=== PATIENT | male | born 1945 | race Caucasian/White ===

== ENCOUNTER 2016-11-30 11:00 | Inpatient (IN) | payer OTHER ==
[~2016-11-30] VITALS: Ht 160 cm; Wt 84.3 kg
[2017-01-03 15:15] VITALS: BMI 33.2
[2017-01-04] VITALS (33 sets, daily range): BP systolic 109–147; BP diastolic 55–82; PULSE 66–92; RESP 14–20; Ht 160 cm; Wt 84.3 kg
[2017-01-04] MEDS ORDERED: CEFAZOLIN 1 GM INJ ONE (07:00)
[2017-01-04] MEDS ORDERED: ONDANSETRON 4 MG INJ ONE (07:00)
[2017-01-04] MEDS ORDERED: POLYMYXIN B 500000 UNIT INJ ONE (07:36)
--- NOTE | 2017-01-04 07:52 | HPN ---
Date/Time of Note Date/Time of Note DATE: 01/04/17 TIME: 07:52 Interval H&P Admission Note Pt. seen H&P reviewed: No system changes NINO SOLANO MD Jan 04, 2017 07:52
[2017-01-04] MEDS ORDERED: MIDAZOLAM 1 MG/ML 2 ML INJ ONE (08:00)
[2017-01-04] MEDS ORDERED: TRANEXAMIC ACID 840 MG in SOD CHLORIDE 0.9% 100 ML IVPB ONE ×4 (08:00)
[2017-01-04] MEDS ORDERED: FENTAnyl 50 MCG/ML VIAL ONE ×2 (08:01→10:31)
[2017-01-04] MEDS ORDERED: PROPOFOL 20 ML ONE (08:01)
[2017-01-04] MEDS ORDERED: LACT10SO5 PO (08:06)
[2017-01-04] MEDS ORDERED: MONT10TA24 PO (08:06)
[2017-01-04] MEDS ORDERED: IRON1TAB78 PO (08:06)
[2017-01-04] MEDS ORDERED: AMLO-145 PO (08:06)
[2017-01-04] MEDS ORDERED: MEMA10TA16 PO (08:06)
[2017-01-04] MEDS ORDERED: DORZ10DR22 BOTH EYES (08:06)
[2017-01-04] MEDS ORDERED: RANI150T5 PO (08:06)
[2017-01-04] MEDS ORDERED: FLUO10CA17 PO (08:06)
[2017-01-04] MEDS ORDERED: LOPE1LIQ33 PO (08:06)
[2017-01-04] MEDS ORDERED: TRAM50TA2 PO (08:06)
[2017-01-04] MEDS ORDERED: ASPI-535 PO (08:06)
[2017-01-04] MEDS ORDERED: DONE5TAB7 PO (08:06)
[2017-01-04] MEDS ORDERED: [UNRECOGNIZED DRUG - CODE] PO (08:06)
[2017-01-04] MEDS ORDERED: ACET500T98 PO (08:06)
[2017-01-04] MEDS ORDERED: HYDR-902 PO (08:06)
[2017-01-04] MEDS ORDERED: ALBU18HF INHALATION (08:06)
[2017-01-04] MEDS ORDERED: DICL100G37 TOP (08:06)
[2017-01-04] MEDS ORDERED: BENA40TA41 PO (08:06)
[2017-01-04] MEDS ORDERED: NORT25CA PO (08:06)
[2017-01-04] MEDS ORDERED: PANT40TA4 PO (08:06)
[2017-01-04] MEDS ORDERED: FLUT16SP17 NASAL (08:06)
[2017-01-04] MEDS ORDERED: LATA2.5D9 BOTH EYES (08:06)
[2017-01-04] MEDS ORDERED: PHENYLephrine (100 MCG/ML) 5ML SYG ONE (08:17)
[2017-01-04] MEDS ORDERED: LABETALOL HCL 20MG INJ ONE (08:51)
[2017-01-04] MEDS ORDERED: POLYMYXIN/BACITRACIN 1L IRRIG ONE (09:16)
[2017-01-04] MEDS ORDERED: BACITRACIN 50000 UNITS INJ ONE (09:18)
[2017-01-04] MEDS ORDERED: LIDOCAINE 2% (SDV) 5 ML INJ ONE (09:57)
[2017-01-04] MEDS ORDERED: DEXAMETHASONE 4 MG/ML 1 ML INJ ONE (09:57)
[2017-01-04] MEDS ORDERED: ROCURONIUM 50 MG INJ ONE (09:57)
[2017-01-04] MEDS ORDERED: ROPIVACAINE 0.5 % 30 ML VIAL ONE (09:57)
[2017-01-04] MEDS ORDERED: hydrALAzine 20 MG INJ IV PRN (11:00)
[2017-01-04] MEDS ORDERED: KETOROLAC 30 MG INJ IV PRN (11:00)
[2017-01-04] MEDS ORDERED: MEPERIDINE 25 MG INJ IV PRN (11:00)
[2017-01-04] MEDS ORDERED: ONDANSETRON 4 MG INJ IV PRN ×2 (11:00)
[2017-01-04] MEDS ORDERED: EPHEDrine SULFATE 50 MG/5 ML SYG IV PRN (11:00)
[2017-01-04] MEDS ORDERED: HYDROmorphONE (0.2 MG/ML) 10ML SYG IV PRN ×3 (11:00)
[2017-01-04] MEDS ORDERED: LABETALOL HCL 20MG INJ IV PRN (11:00)
[2017-01-04] MEDS ORDERED: FENTAnyl 50 MCG/ML VIAL IV PRN ×3 (11:00)
[2017-01-04] MEDS ORDERED: NALOXONE (0.4 MG/ML) INJ IV PRN ×2 (11:00→11:30)
[2017-01-04] MEDS ORDERED: OXYCODONE/ACETAMINOPHEN (5/325) TAB PO PRN (11:00)
[2017-01-04] MEDS ORDERED: DIPHENHYDRAMINE 50 MG INJ IV PRN (11:00)
[2017-01-04] MEDS ORDERED: INSULIN ASPART [NOVOLOG] 3 ML PEN SC ONE (11:00)
[2017-01-04] MEDS ORDERED: CEFAZOLIN 1 GM/50 ML (PMX) 50 ML IVPB ONE ×2 (11:28→11:45)
[2017-01-04] MEDS ORDERED: DOCUSATE SODIUM 100 MG CAP PO ONE ×2 (11:28→11:30)
[2017-01-04] MEDS ORDERED: SENNA/DOCUSATE NA (8.6MG/50MG) TAB PO PRN (11:30)
[2017-01-04] MEDS ORDERED: MAGNESIUM HYDROXIDE 30ML CUP PO PRN (11:30)
[2017-01-04] MEDS ORDERED: oxyCODONE 5 MG TAB PO PRN (11:30)
[2017-01-04] MEDS: HYDROmorphONE 0.2 MG/ML PCA IV SCH ×2 (11:36→20:13)
[2017-01-04] MEDS: CEFAZOLIN 1 GM/50 ML (PMX) 50 ML IVPB SCH ×2 (11:43→21:26)
[2017-01-04] MEDS: DEXTROSE 5%-LR 1,000 ML IV SCH ×2 (13:13→22:16)
--- NOTE | 2017-01-04 13:41 | RADRPT ---
PROCEDURE: XR Knee. CLINICAL INDICATION: Postoperative evaluation TECHNIQUE: AP and lateral of the left knee were obtained. The images reviewed on a PACS workstati on. COMPARISON: None. FINDINGS: A left knee arthroplasty is seen and is without evidence of hardware loosening of lucency. No acute fracture or dislocation is seen. Skin robert are seen with soft tissue swelling and soft tissue air . A drain is seen in place. IMPRESSION: Status post left knee arthroplasty with acute postoperative changes. RPTAT: HPNM Physician Vladislav Date Time Electronically viewed and signed by Physician Vladislav on 01/04/2017 13:41 /
[2017-01-04] MEDS: DIPHENHYDRAMINE 50 MG INJ IV PRN ×2 (13:56→22:02)
[2017-01-04] MEDS ORDERED: ALBUTEROL 18 GM INHALER INH PRN (15:30)
[2017-01-04] MEDS: PANTOPRAZOLE (EC) 40 MG TAB PO SCH (17:23)
[2017-01-04] MEDS: FLUTICASONE 0.05% 16 GM NAS SPRAY NASAL SCH (20:38)
[2017-01-04] MEDS: MONTELUKAST 10 MG TAB PO SCH (20:38)
[2017-01-04] MEDS: DORZOLAMIDE/TIMOLOL 10 ML OPH BOTH EYES SCH (20:38)
[2017-01-04] MEDS: MEMANTINE 10 MG TAB PO SCH (20:39)
[2017-01-04] MEDS: LATANOPROST 0.005% 2.5 ML OPH BOTH EYES SCH (21:43)
[2017-01-05] MEDS: DIPHENHYDRAMINE 50 MG INJ IV PRN ×2 (04:17→22:11)
[2017-01-05] MEDS: HYDROmorphONE 0.2 MG/ML PCA IV SCH (04:18)
[2017-01-05 05:52] LABS: ABNORMAL IP MESSAGE 1; BASOPHILS % 0.1 % (0.0-2.0); EOSINOPHILS % 0.1 % (0.0-7.0); HEMATOCRIT 31.3 % (42.0-52.0); HEMOGLOBIN 10.9 g/dl (14.0-18.0); LYMPHOCYTES # 1.5 10^3/ul (0.8-2.9); MEAN CORPUSCULAR HEMOGLOBIN 33.3 pg (29.0-33.0); MEAN CORPUSCULAR HGB CONC 34.8 g/dl (32.0-37.0); MEAN CORPUSCULAR VOLUME 95.7 fl (82.0-101.0); MEAN PLATELET VOLUME 9.9 fl (7.4-10.4); MONOCYTE # 1.5 10^3/ul (0.3-0.9); MONOCYTES % 12.1 % (0.0-11.0); NEUTROPHIL # 9.6 10^3/ul (1.6-7.5); NEUTROPHILS % 75.3 % (39.0-77.0); PLATELET COUNT 134 10^3/UL (140-415); POSITIVE DIFF @See below; RED BLOOD COUNT 3.27 10^6/ul (4.70-6.10); RED CELL DISTRIBUTION WIDTH 13.1 % (11.5-14.5); WHITE BLOOD COUNT 12.8 10^3/ul (4.8-10.8)
[2017-01-05] MEDS: PANTOPRAZOLE (EC) 40 MG TAB PO SCH ×2 (06:12→18:43)
[2017-01-05] MEDS: CEFAZOLIN 1 GM/50 ML (PMX) 50 ML IVPB SCH (06:14)
[2017-01-05 06:20] LABS: INR 1.03; PROTIME 13.5 Sec (12.2-14.2); PT RATIO 1.1
[2017-01-05 06:36] LABS: CALCIUM 8.4 mg/dl (8.4-10.2); CREATININE 0.63 mg/dl (0.61-1.24); POTASSIUM 3.9 mmol/L (3.5-5.1)
[2017-01-05 07:55] VITALS: BP 148/69; RESP 17
[2017-01-05] MEDS: FLUTICASONE 0.05% 16 GM NAS SPRAY NASAL SCH ×2 (08:35→22:07)
[2017-01-05] MEDS: DORZOLAMIDE/TIMOLOL 10 ML OPH BOTH EYES SCH ×2 (08:35→22:06)
[2017-01-05] MEDS: DOCUSATE SODIUM 100 MG CAP PO SCH ×2 (08:36→22:06)
[2017-01-05] MEDS: DONEPEZIL 5 MG TAB PO SCH (08:36)
[2017-01-05] MEDS: AMLODIPINE 5 MG TAB PO SCH (08:36)
[2017-01-05] MEDS: MEMANTINE 10 MG TAB PO SCH ×2 (08:36→22:06)
[2017-01-05] MEDS: ASPIRIN (EC) 325 MG TAB PO SCH ×2 (08:37→22:06)
[2017-01-05] MEDS: BENAZEPRIL 40 MG TAB PO SCH (08:37)
[2017-01-05] MEDS: FLUOXETINE 10 MG CAP PO SCH (08:40)
[2017-01-05] MEDS: DEXTROSE 5%-LR 1,000 ML IV SCH (08:41)
--- NOTE | 2017-01-05 12:59 | PN ---
Date/Time of Note Date/Time of Note DATE: 01/05/17 TIME: 12:58 Assessment/Plan Lines/Catheters IV Catheter Type (from Nrsg): Peripheral IV Norman in Place (from Nrsg): No Assessment/Plan Assessment/Plan POD 1 s/p left TKA Stable Pain control CPM, Gait training with PT OOB with PT Aspirin, SCD's for DVT prophylaxis D/c Norman catheter Discharge planning Home tomorrow versus Saturday Subjective 24 Hr Interval Summary Sleeping in bed. Exam/Review of Systems Vital Signs Vitals Vital Signs Date Time Temp Pulse Resp B/P Pulse Ox O2 Delivery O2 Flow Rate FiO2 01/05/17 11:00 Nasal Cannula 2.0 01/05/17 09:00 18 01/05/17 07:55 98.2 78 148/69 100 Intake and Output 01/04/17 01/04/17 01/05/17 15:00 23:00 07:00 Intake Total 1608.4 ml 1700 ml 1000 ml Output Total 373 ml 1460 ml 1400 ml Balance 1235.4 ml 240 ml -400 ml Exam Free Text/Dictation Left LE Dressing c/d/i Calf soft Intact motor and sensory function in foot Toes warm Results Result Diagram: 01/05/17 0457 01/05/17 0457 NINO SOLANO MD Jan 05, 2017 12:59
--- NOTE | 2017-01-05 13:01 | PDOCDIS ---
Discharge Instructions CONDITION Patient Condition: Good HOME CARE INSTRUCTIONS: Diet Instructions: RegularSpecial Diet: REGULAR ACTIVITY: Activity Restrictions: No Restrictions FOLLOW UP/APPOINTMENTS Follow-up Plan Dr. Nino Solano 2 weeks OTHER ORDERS: Other Orders: 1. Aspirin 325 mg po bid x 2 weeks 2. CPM for home use BID 0-90 degrees 3. Knee immobilizer when in bed especially to sleep at night 4. Front wheel walker 5. Elevated toilet seat 6. Home PT SCHOOL/WORK RELEASE May return to School/Work on: Jan 05, 2017 NINO SOLANO MD Jan 05, 2017 13:01
--- NOTE | 2017-01-05 13:24 | PN ---
Date/Time of Note Date/Time of Note DATE: 01/05/17 TIME: 13:20 Assessment/Plan VTE Prophylaxis VTE Prophylaxis Intervention: SCD's Lines/Catheters IV Catheter Type (from Nrsg): Peripheral IV Urinary Cath still in place: No Assessment/Plan Assessment/Plan -s/p left TKA -Per ortho -Pain control - CPM, Gait training with PT - OOB with PT -Aspirin, SCD's for DVT prophylaxis -D/c Norman catheter per surgery. Monitor patient for urinating after Discharge planning Home tomorrow versus Saturday Further recommendations depend on patient's clinical course. Plan of care discussed with Dr. Sharif, staff, patient Subjective 24 Hr Interval Summary Free Text/Dictation Patient is resting in the bed denies any complaints anticipate discharge on Saturday. Making arrangements for CPM machine according to patient's setting. No new events reported by staff Constitutional: improved Respiratory: no complaints Cardiovascular: no complaints Gastrointestinal: no complaints Genitourinary: no complaints Musculoskeletal: bone/joint pain Skin: no complaints Neurologic: no complaints Exam/Review of Systems Vital Signs Vitals Vital Signs Date Time Temp Pulse Resp B/P Pulse Ox O2 Delivery O2 Flow Rate FiO2 01/05/17 11:00 Nasal Cannula 2.0 01/05/17 09:00 18 01/05/17 07:55 98.2 78 148/69 100 Intake and Output 01/04/17 01/04/17 01/05/17 15:00 23:00 07:00 Intake Total 1608.4 ml 1700 ml 1000 ml Output Total 373 ml 1460 ml 1400 ml Balance 1235.4 ml 240 ml -400 ml Exam Constitutional: alert, oriented, well developed Respiratory: clear to auscultation, normal air movement Cardiovascular: nl pulses, regular rate and rhythm Gastrointestinal: non-tender, soft Musculoskeletal: other, swelling (Status post left knee arthroplasty) Extremities: normal pulses Neurological: nl mental status, nl speech Results Result Diagram: 01/05/17 0457 01/05/17 0457 Results 24 hrs Laboratory Tests Test 01/05/17 04:57 White Blood Count 12.8 H Red Blood Count 3.27 L Hemoglobin 10.9 L Hematocrit 31.3 L Mean Corpuscular Volume 95.7 Mean Corpuscular Hemoglobin 33.3 H Mean Corpuscular Hemoglobin Concent 34.8 Red Cell Distribution Width 13.1 Platelet Count 134 L Mean Platelet Volume 9.9 Neutrophils % 75.3 Lymphocytes % 12.0 L Monocytes % 12.1 H Eosinophils % 0.1 Basophils % 0.1 Nucleated Red Blood Cells % 0.0 Neutrophils # 9.6 H Lymphocytes # 1.5 Monocytes # 1.5 H Eosinophils # 0.0 Basophils # 0.0 Nucleated Red Blood Cells # 0.0 Prothrombin Time 13.5 Prothrombin Time Ratio 1.1 INR International Normalized Ratio 1.03 Sodium Level 138 Potassium Level 3.9 Chloride Level 103 Carbon Dioxide Level 22 Anion Gap 17 H Blood Urea Nitrogen 9 Creatinine 0.63 Glucose Level 105 Calcium Level 8.4 Medications Medications Current Medications Naloxone HCl (Narcan) 0.2 mg PRN PRN IV DECREASED REPIRATORY RATE; Start at 11:00 Hydromorphone HCl (Dilaudid KENNEL AIDE) Q4PCA IV Last administered on 01/05/17 04:18 ; Admin Dose 6 MG; Start 01/04/17 at 11:00 Oxycodone/ Acetaminophen (Percocet (5/ 325)) 1 tab Q4H PRN PO PAIN LEVEL 1-5; Start 01/04/17 at 11:00 Oxycodone/ Acetaminophen (Percocet (5/ 325)) 2 tab Q4H PRN PO PAIN LEVEL 6-10; Start 01/04/17 at 11:00 Ketorolac Tromethamine (Toradol) 30 mg Q6H PRN IV PAIN Last administered on 11:55; Admin Dose 30 MG; Start 01/04/17 at 11:00; Stop 01/07/17 at 10:59 Ondansetron HCl (Zofran Inj) 4 mg Q6H PRN IV NAUSEA AND/OR VOMITING; Start at 11:00 Diphenhydramine HCl (Benadryl) 25 mg Q6H PRN IV ITCHING Last administered on 04:17; Admin Dose 25 MG; Start 01/04/17 at 11:00 Miscellaneous Information 1. Discontinue KENNEL AIDE... KENNEL AIDE IV ; Start 01/04/17 at 11:00 Miscellaneous Information 1. Discontinue KENNEL AIDE... KENNEL AIDE IV ; Start 01/04/17 at 11:00 Dextrose/Lactated Ringer's (D5-Lr) 1,000 ml @ 80 mls/hr [id number] IV Last administered on 01/05/17 08:41; Admin Dose 80 MLS/HR; Start 01/04/17 at 11:04 Oxycodone HCl (Roxicodone) 10 mg Q3H PRN PO PAIN LEVEL 4-7; Start 01/04/17 at 11:30 Oxycodone HCl (Roxicodone) 5 mg Q3H PRN PO PAIN LEVEL 1-3; Start 01/04/17 at 11 :30 Aspirin (Ecotrin) 325 mg BID PO Last administered on 01/05/17 08:37; Admin Dose 325 MG; Start 01/05/17 at 09:00 Docusate Sodium (Colace) 200 mg BID PO ; Start 01/05/17 at 09:00; Stop 01/08/17 at 08:59 Senna/Docusate Sodium (Senokot-S) 2 tab BID PRN PO CONSTIPATION; Start at 11:30 Magnesium Hydroxide (Milk Of Mag) 30 ml HS PRN PO CONSTIPATION; Start 01/04/17 at 11:30 Naloxone HCl (Narcan) 0.2 mg Q2M PRN IV DECREASED REPIRATORY RATE; Start at 11:30 Albuterol (Ventolin Hfa) 2 puff Q4H PRN INH SHORTNESS OF BREATH; Start at 15:30 Amlodipine Besylate (Norvasc) 5 mg DAILY PO Last administered on 01/05/17 08: 36; Admin Dose 5 MG; Start 01/05/17 at 09:00 Benazepril HCl (Lotensin) 40 mg DAILY PO Last administered on 01/05/17 08:37; Admin Dose 40 MG; Start 01/05/17 at 09:00 Donepezil HCl (Aricept) 5 mg DAILY PO Last administered on 01/05/17 08:36; Admin Dose 5 MG; Start 01/05/17 at 09:00 Dorzolamide/ Timolol (Cosopt) 1 drop BID BOTH EYES Last administered on 08:35; Admin Dose 1 DROP; Start 01/04/17 at 21:00 Fluoxetine HCl (Prozac) 10 mg DAILY PO Last administered on 01/05/17 08:40; Admin Dose 10 MG; Start 01/05/17 at 09:00 Fluticasone Propionate (Flonase 0.05% Nasal) 1 spray BID NASAL Last administered on 01/05/17 08:35; Admin Dose 1 SPRAY; Start 01/04/17 at 21:00 Latanoprost (Xalatan) 1 drop QHS BOTH EYES Last administered on 01/04/17 21:43 ; Admin Dose 1 DROP; Start 01/04/17 at 21:00 Memantine (Namenda) 10 mg BID PO Last administered on 01/05/17 08:36; Admin Dose 10 MG; Start 01/04/17 at 21:00 Montelukast Sodium (Singulair) 10 mg QHS PO Last administered on 01/04/17 20: 38; Admin Dose 10 MG; Start 01/04/17 at 21:00 Pantoprazole (Protonix Tab) 40 mg BID@,18 PO Last administered on 01/05/17 06:12; Admin Dose 40 MG; Start 01/04/17 at 18:00 JUDD PETERSEN Jan 05, 2017 13:24
[2017-01-05] MEDS: OXYCODONE/ACETAMINOPHEN (5/325) TAB PO PRN (16:18)
[2017-01-05] MEDS: morphine 2 MG INJ IV PRN ×2 (17:40→19:28)
[2017-01-05 20:41] VITALS: BP 123/60; RESP 19
[2017-01-05] MEDS: MONTELUKAST 10 MG TAB PO SCH (22:06)
[2017-01-05] MEDS: LATANOPROST 0.005% 2.5 ML OPH BOTH EYES SCH (22:07)
[2017-01-06] MEDS: DEXTROSE 5%-LR 1,000 ML IV SCH ×2 (00:34→12:11)
[2017-01-06] MEDS: OXYCODONE/ACETAMINOPHEN (5/325) TAB PO PRN ×6 (00:53→23:48)
[2017-01-06] MEDS: morphine 2 MG INJ IV PRN ×6 (02:00→22:07)
[2017-01-06] MEDS: ZOLPIDEM 5 MG TAB PO PRN (02:00)
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
[2017-01-06] MEDS: PANTOPRAZOLE (EC) 40 MG TAB PO SCH ×2 (05:20→17:10)
[2017-01-06 06:54] LABS: ABNORMAL IP MESSAGE 1; BASOPHIL # 0.1 10^3/ul (0.0-0.1); BASOPHILS % 0.4 % (0.0-2.0); EOSINOPHILS # 0.6 10^3/ul (0.0-0.5); EOSINOPHILS % 4.6 % (0.0-7.0); HEMATOCRIT 29.8 % (42.0-52.0); HEMOGLOBIN 10.4 g/dl (14.0-18.0); LYMPHOCYTES # 2.6 10^3/ul (0.8-2.9); LYMPHOCYTES % 21.9 % (15.0-51.0); MEAN CORPUSCULAR HEMOGLOBIN 33.4 pg (29.0-33.0); MEAN CORPUSCULAR HGB CONC 34.9 g/dl (32.0-37.0); MEAN CORPUSCULAR VOLUME 95.8 fl (82.0-101.0); MONOCYTE # 1.9 10^3/ul (0.3-0.9); NEUTROPHIL # 6.7 10^3/ul (1.6-7.5); NEUTROPHILS % 56.3 % (39.0-77.0); PLATELET COUNT 152 10^3/UL (140-415); POSITIVE DIFF @See below; RED BLOOD COUNT 3.11 10^6/ul (4.70-6.10); RED CELL DISTRIBUTION WIDTH 13.4 % (11.5-14.5); WHITE BLOOD COUNT 11.9 10^3/ul (4.8-10.8)
[2017-01-06 07:18] LABS: CALCIUM 8.2 mg/dl (8.4-10.2); CREATININE 0.6 mg/dl (0.61-1.24)
[2017-01-06 07:29] LABS: INR 1.02; PROTIME 13.4 Sec (12.2-14.2)
[2017-01-06 07:50] VITALS: BP 141/64; RESP 18
[2017-01-06] MEDS: FLUTICASONE 0.05% 16 GM NAS SPRAY NASAL SCH ×2 (08:07→20:20)
[2017-01-06] MEDS: DORZOLAMIDE/TIMOLOL 10 ML OPH BOTH EYES SCH ×2 (08:07→20:20)
[2017-01-06] MEDS: DONEPEZIL 5 MG TAB PO SCH (08:07)
[2017-01-06] MEDS: BENAZEPRIL 40 MG TAB PO SCH (08:08)
[2017-01-06] MEDS: DOCUSATE SODIUM 100 MG CAP PO SCH ×2 (08:08→20:21)
[2017-01-06] MEDS: ASPIRIN (EC) 325 MG TAB PO SCH ×2 (08:08→20:21)
[2017-01-06] MEDS: FLUOXETINE 10 MG CAP PO SCH (08:09)
[2017-01-06] MEDS: AMLODIPINE 5 MG TAB PO SCH (08:09)
[2017-01-06] MEDS: MEMANTINE 10 MG TAB PO SCH ×2 (08:09→21:32)
--- NOTE | 2017-01-06 16:24 | PN ---
Date/Time of Note Date/Time of Note DATE: 01/06/17 TIME: 16:22 Assessment/Plan VTE Prophylaxis VTE Prophylaxis Intervention: other Lines/Catheters IV Catheter Type (from Nrsg): Saline Lock Urinary Cath still in place: No Assessment/Plan Assessment/Plan -s/p left TKA- ARU eval pending -Per ortho -Pain control - CPM, Gait training with PT - OOB with PT -Aspirin, SCD's for DVT prophylaxis -D/c Norman catheter per surgery. Monitor patient for urinating after Discharge planning Home tomorrow versus Saturday Further recommendations depend on patient's clinical course. Plan of care discussed with Dr. Sharif, staff, patient Subjective 24 Hr Interval Summary Free Text/Dictation c/o left knee pain, ARU pending. dw staff. Exam/Review of Systems Vital Signs Vitals Vital Signs Date Time Temp Pulse Resp B/P Pulse Ox O2 Delivery O2 Flow Rate FiO2 01/06/17 07:50 99.2 89 18 141/64 94 01/05/17 11:00 Nasal Cannula 2.0 Intake and Output 01/05/17 01/05/17 01/06/17 15:00 23:00 07:00 Intake Total 50 ml 900 ml 2300 ml Output Total 200 ml 1100 ml Balance 50 ml 700 ml 1200 ml Exam Constitutional: alert, oriented, well developed Respiratory: clear to auscultation, normal air movement Cardiovascular: nl pulses, regular rate and rhythm Gastrointestinal: non-tender, soft Musculoskeletal: other Extremities: normal pulses Neurological: nl mental status, nl speech Skin: nl turgor Results Result Diagram: 01/06/17 0530 01/06/17 0530 Results 24 hrs Laboratory Tests Test 01/06/17 05:30 White Blood Count 11.9 H Red Blood Count 3.11 L Hemoglobin 10.4 L Hematocrit 29.8 L Mean Corpuscular Volume 95.8 Mean Corpuscular Hemoglobin 33.4 H Mean Corpuscular Hemoglobin Concent 34.9 Red Cell Distribution Width 13.4 Platelet Count 152 Mean Platelet Volume 10.0 Neutrophils % 56.3 Lymphocytes % 21.9 Monocytes % 16.0 H Eosinophils % 4.6 Basophils % 0.4 Nucleated Red Blood Cells % 0.0 Neutrophils # 6.7 Lymphocytes # 2.6 Monocytes # 1.9 H Eosinophils # 0.6 H Basophils # 0.1 Nucleated Red Blood Cells # 0.0 Prothrombin Time 13.4 Prothrombin Time Ratio 1.0 INR International Normalized Ratio 1.02 Sodium Level 137 Potassium Level 4.0 Chloride Level 101 Carbon Dioxide Level 22 Anion Gap 18 H Blood Urea Nitrogen 11 Creatinine 0.60 L Glucose Level 134 Calcium Level 8.2 L Medications Medications Current Medications Naloxone HCl (Narcan) 0.2 mg PRN PRN IV DECREASED REPIRATORY RATE; Start at 11:00 Oxycodone/ Acetaminophen (Percocet (5/ 325)) 1 tab Q4H PRN PO PAIN LEVEL 1-5; Start 01/04/17 at 11:00 Oxycodone/ Acetaminophen (Percocet (5/ 325)) 2 tab Q4H PRN PO PAIN LEVEL 6-10 Last administered on 01/06/17 15:10; Admin Dose 2 TAB; Start 01/04/17 at 11:00 Ondansetron HCl (Zofran Inj) 4 mg Q6H PRN IV NAUSEA AND/OR VOMITING; Start at 11:00 Diphenhydramine HCl (Benadryl) 25 mg Q6H PRN IV ITCHING Last administered on 22:11; Admin Dose 25 MG; Start 01/04/17 at 11:00 Miscellaneous Information 1. Discontinue BRANCH LENDING MANAGER... BRANCH LENDING MANAGER IV ; Start 01/04/17 at 11:00 Miscellaneous Information 1. Discontinue BRANCH LENDING MANAGER... BRANCH LENDING MANAGER IV ; Start 01/04/17 at 11:00 Dextrose/Lactated Ringer's (D5-Lr) 1,000 ml @ 80 mls/hr [id number] IV Last administered on 01/05/17 08:41; Admin Dose 80 MLS/HR; Start 01/04/17 at 11:04 Oxycodone HCl (Roxicodone) 10 mg Q3H PRN PO PAIN LEVEL 4-7; Start 01/04/17 at 11:30 Oxycodone HCl (Roxicodone) 5 mg Q3H PRN PO PAIN LEVEL 1-3; Start 01/04/17 at 11 :30 Aspirin (Ecotrin) 325 mg BID PO Last administered on 01/06/17 08:08; Admin Dose 325 MG; Start 01/05/17 at 09:00 Docusate Sodium (Colace) 200 mg BID PO Last administered on 01/06/17 08:08; Admin Dose 200 MG; Start 01/05/17 at 09:00; Stop 01/08/17 at 08:59 Senna/Docusate Sodium (Senokot-S) 2 tab BID PRN PO CONSTIPATION; Start at 11:30 Magnesium Hydroxide (Milk Of Mag) 30 ml HS PRN PO CONSTIPATION; Start 01/04/17 at 11:30 Naloxone HCl (Narcan) 0.2 mg Q2M PRN IV DECREASED REPIRATORY RATE; Start at 11:30 Albuterol (Ventolin Hfa) 2 puff Q4H PRN INH SHORTNESS OF BREATH; Start at 15:30 Amlodipine Besylate (Norvasc) 5 mg DAILY PO Last administered on 01/06/17 08: 09; Admin Dose 5 MG; Start 01/05/17 at 09:00 Benazepril HCl (Lotensin) 40 mg DAILY PO Last administered on 01/06/17 08:08; Admin Dose 40 MG; Start 01/05/17 at 09:00 Donepezil HCl (Aricept) 5 mg DAILY PO Last administered on 01/06/17 08:07; Admin Dose 5 MG; Start 01/05/17 at 09:00 Dorzolamide/ Timolol (Cosopt) 1 drop BID BOTH EYES Last administered on 08:07; Admin Dose 1 DROP; Start 01/04/17 at 21:00 Fluoxetine HCl (Prozac) 10 mg DAILY PO Last administered on 01/06/17 08:09; Admin Dose 10 MG; Start 01/05/17 at 09:00 Fluticasone Propionate (Flonase 0.05% Nasal) 1 spray BID NASAL Last administered on 01/06/17 08:07; Admin Dose 1 SPRAY; Start 01/04/17 at 21:00 Latanoprost (Xalatan) 1 drop QHS BOTH EYES Last administered on 01/05/17 22:07 ; Admin Dose 1 DROP; Start 01/04/17 at 21:00 Memantine (Namenda) 10 mg BID PO Last administered on 01/06/17 08:09; Admin Dose 10 MG; Start 01/04/17 at 21:00 Montelukast Sodium (Singulair) 10 mg QHS PO Last administered on 01/05/17 22: 06; Admin Dose 10 MG; Start 01/04/17 at 21:00 Pantoprazole (Protonix Tab) 40 mg BID@06,18 PO Last administered on 01/06/17 05:20; Admin Dose 40 MG; Start 01/04/17 at 18:00 Morphine Sulfate (morphine) 2 mg Q2H PRN IV PAIN Last administered on 11:17; Admin Dose 2 MG; Start 01/05/17 at 15:00 JUDD PETERSEN Jan 06, 2017 16:24
[2017-01-06 19:14] VITALS: BP 145/68; RESP 16
[2017-01-06] MEDS: LATANOPROST 0.005% 2.5 ML OPH BOTH EYES SCH (20:20)
[2017-01-06] MEDS: MONTELUKAST 10 MG TAB PO SCH (20:21)
[2017-01-07] MEDS: DEXTROSE 5%-LR 1,000 ML IV SCH ×2 (01:34→14:04)
[2017-01-07] MEDS: OXYCODONE/ACETAMINOPHEN (5/325) TAB PO PRN ×5 (04:06→22:10)
[2017-01-07 05:25] LABS: ABNORMAL IP MESSAGE 1; BASOPHIL # 0.1 10^3/ul (0.0-0.1); BASOPHILS % 0.6 % (0.0-2.0); EOSINOPHILS # 0.6 10^3/ul (0.0-0.5); EOSINOPHILS % 4.7 % (0.0-7.0); HEMATOCRIT 30.3 % (42.0-52.0); HEMOGLOBIN 10.5 g/dl (14.0-18.0); LYMPHOCYTES # 2.9 10^3/ul (0.8-2.9); LYMPHOCYTES % 23.5 % (15.0-51.0); MEAN CORPUSCULAR HEMOGLOBIN 32.8 pg (29.0-33.0); MEAN CORPUSCULAR HGB CONC 34.7 g/dl (32.0-37.0); MEAN CORPUSCULAR VOLUME 94.7 fl (82.0-101.0); MEAN PLATELET VOLUME 9.5 fl (7.4-10.4); MONOCYTE # 1.9 10^3/ul (0.3-0.9); MONOCYTES % 15.2 % (0.0-11.0); NEUTROPHIL # 6.9 10^3/ul (1.6-7.5); NEUTROPHILS % 55.1 % (39.0-77.0); PLATELET COUNT 160 10^3/UL (140-415); POSITIVE DIFF @See below; RED CELL DISTRIBUTION WIDTH 13.3 % (11.5-14.5); WHITE BLOOD COUNT 12.5 10^3/ul (4.8-10.8)
[2017-01-07] MEDS: PANTOPRAZOLE (EC) 40 MG TAB PO SCH ×2 (05:29→17:32)
[2017-01-07 05:46] LABS: CALCIUM 8.4 mg/dl (8.4-10.2); CREATININE 0.59 mg/dl (0.61-1.24); POTASSIUM 4.3 mmol/L (3.5-5.1)
[2017-01-07] MEDS: DORZOLAMIDE/TIMOLOL 10 ML OPH BOTH EYES SCH ×2 (08:58→22:10)
[2017-01-07] MEDS: DOCUSATE SODIUM 100 MG CAP PO SCH ×2 (08:59→22:10)
[2017-01-07] MEDS: DONEPEZIL 5 MG TAB PO SCH (08:59)
[2017-01-07] MEDS: ASPIRIN (EC) 325 MG TAB PO SCH ×2 (08:59→22:10)
[2017-01-07] MEDS: FLUTICASONE 0.05% 16 GM NAS SPRAY NASAL SCH ×2 (08:59→22:10)
[2017-01-07] MEDS: MEMANTINE 10 MG TAB PO SCH ×2 (09:00→22:10)
[2017-01-07] MEDS: FLUOXETINE 10 MG CAP PO SCH (09:00)
[2017-01-07] MEDS: BENAZEPRIL 40 MG TAB PO SCH (09:00)
[2017-01-07] MEDS: AMLODIPINE 5 MG TAB PO SCH (09:01)
--- NOTE | 2017-01-07 09:12 | PN ---
Date/Time of Note Date/Time of Note DATE: 01/07/17 TIME: 09:10 Assessment/Plan Lines/Catheters IV Catheter Type (from Nrsg): Saline Lock Norman in Place (from Nrsg): No Assessment/Plan Assessment/Plan POD 3 Stable Pain control OOB with PT, CPM Aspirin, SCD's for DVT prophylaxis Patient has not done CPM over the weekend, recommend starting today Discharge planning Consider rehab due to slow progress Subjective 24 Hr Interval Summary Complaining of pain. Exam/Review of Systems Vital Signs Vitals Vital Signs Date Time Temp Pulse Resp B/P Pulse Ox O2 Delivery O2 Flow Rate FiO2 01/06/17 19:14 98.5 90 16 145/68 95 01/05/17 11:00 Nasal Cannula 2.0 Intake and Output 01/06/17 01/06/17 01/07/17 15:00 23:00 07:00 Intake Total 600 ml 720 ml Output Total 1000 ml 750 ml Balance -400 ml -30 ml Exam Free Text/Dictation Left LE Incision c/d/i. No erythema Calf soft and non tender Foot warm and well perfused Intact motor and sensory function Results Result Diagram: 01/07/17 0438 01/07/17 0438 NINO SOLANO MD Jan 07, 2017 09:11
--- NOTE | 2017-01-07 12:25 | PN ---
Date/Time of Note Date/Time of Note DATE: 01/07/17 TIME: 12:18 Assessment/Plan VTE Prophylaxis VTE Prophylaxis Intervention: SCD's Lines/Catheters IV [facility]from [facility] Saline Lock Urinary Cath still in place: No Assessment/Plan Assessment/Plan - Left knee osteoarthritis, status post total knee replacement. Continue aspirin, continue PT, pending acute rehab eval. - Hypertension. Continue benazepril and Norvasc. Further recommendations based on clinical course. Plan of care discussed with Dr. Sharif. Exam/Review of Systems Vital Signs Vitals Vital Signs Date Time Temp Pulse Resp B/P Pulse Ox O2 Delivery O2 Flow Rate FiO2 01/06/17 19:14 98.5 90 16 145/68 95 01/05/17 11:00 Nasal Cannula 2.0 Intake and Output 01/06/17 01/06/17 01/07/17 15:00 23:00 07:00 Intake Total 600 ml 720 ml Output Total 1000 ml 750 ml Balance -400 ml -30 ml Exam Constitutional: alert Respiratory: normal air movement Cardiovascular: nl pulses Gastrointestinal: non-tender, soft Musculoskeletal: other (Status post total knee replacement) Results Result Diagram: 01/07/17 0438 01/07/17 0438 Results 24 hrs Laboratory Tests Test 01/07/17 04:38 White Blood Count 12.5 H Red Blood Count 3.20 L Hemoglobin 10.5 L Hematocrit 30.3 L Mean Corpuscular Volume 94.7 Mean Corpuscular Hemoglobin 32.8 Mean Corpuscular Hemoglobin Concent 34.7 Red Cell Distribution Width 13.3 Platelet Count 160 Mean Platelet Volume 9.5 Neutrophils % 55.1 Lymphocytes % 23.5 Monocytes % 15.2 H Eosinophils % 4.7 Basophils % 0.6 Nucleated Red Blood Cells % 0.0 Neutrophils # 6.9 Lymphocytes # 2.9 Monocytes # 1.9 H Eosinophils # 0.6 H Basophils # 0.1 Nucleated Red Blood Cells # 0.0 Sodium Level 137 Potassium Level 4.3 Chloride Level 102 Carbon Dioxide Level 26 Anion Gap 13 Blood Urea Nitrogen 9 Creatinine 0.59 L Glucose Level 114 Calcium Level 8.4 Medications Medications Current Medications Naloxone HCl (Narcan) 0.2 mg PRN PRN IV DECREASED REPIRATORY RATE; Start at 11:00 Oxycodone/ Acetaminophen (Percocet (5/ 325)) 1 tab Q4H PRN PO PAIN LEVEL 1-5; Start 01/04/17 at 11:00 Oxycodone/ Acetaminophen (Percocet (5/ 325)) 2 tab Q4H PRN PO PAIN LEVEL 6-10 Last administered on 01/07/17 09:01; Admin Dose 2 TAB; Start 01/04/17 at 11:00 Ondansetron HCl (Zofran Inj) 4 mg Q6H PRN IV NAUSEA AND/OR VOMITING; Start at 11:00 Diphenhydramine HCl (Benadryl) 25 mg Q6H PRN IV ITCHING Last administered on 22:11; Admin Dose 25 MG; Start 01/04/17 at 11:00 Miscellaneous Information 1. Discontinue JOCKEY ROOM CUSTODIAN... JOCKEY ROOM CUSTODIAN IV ; Start 01/04/17 at 11:00 Miscellaneous Information 1. Discontinue JOCKEY ROOM CUSTODIAN... JOCKEY ROOM CUSTODIAN IV ; Start 01/04/17 at 11:00 Dextrose/Lactated Ringer's (D5-Lr) 1,000 ml @ 80 mls/hr [id number] IV Last administered on 01/05/17 08:41; Admin Dose 80 MLS/HR; Start 01/04/17 at 11:04 Oxycodone HCl (Roxicodone) 10 mg Q3H PRN PO PAIN LEVEL 4-7; Start 01/04/17 at 11:30 Oxycodone HCl (Roxicodone) 5 mg Q3H PRN PO PAIN LEVEL 1-3; Start 01/04/17 at 11 :30 Aspirin (Ecotrin) 325 mg BID PO Last administered on 01/07/17 08:59; Admin Dose 325 MG; Start 01/05/17 at 09:00 Docusate Sodium (Colace) 200 mg BID PO Last administered on 01/07/17 08:59; Admin Dose 200 MG; Start 01/05/17 at 09:00; Stop 01/08/17 at 08:59 Senna/Docusate Sodium (Senokot-S) 2 tab BID PRN PO CONSTIPATION; Start at 11:30 Magnesium Hydroxide (Milk Of Mag) 30 ml HS PRN PO CONSTIPATION; Start 01/04/17 at 11:30 Naloxone HCl (Narcan) 0.2 mg Q2M PRN IV DECREASED REPIRATORY RATE; Start at 11:30 Albuterol (Ventolin Hfa) 2 puff Q4H PRN INH SHORTNESS OF BREATH; Start at 15:30 Amlodipine Besylate (Norvasc) 5 mg DAILY PO Last administered on 01/07/17 09: 01; Admin Dose 5 MG; Start 01/05/17 at 09:00 Benazepril HCl (Lotensin) 40 mg DAILY PO Last administered on 01/07/17 09:00; Admin Dose 40 MG; Start 01/05/17 at 09:00 Donepezil HCl (Aricept) 5 mg DAILY PO Last administered on 01/07/17 08:59; Admin Dose 5 MG; Start 01/05/17 at 09:00 Dorzolamide/ Timolol (Cosopt) 1 drop BID BOTH EYES Last administered on 08:58; Admin Dose 1 DROP; Start 01/04/17 at 21:00 Fluoxetine HCl (Prozac) 10 mg DAILY PO Last administered on 01/07/17 09:00; Admin Dose 10 MG; Start 01/05/17 at 09:00 Fluticasone Propionate (Flonase 0.05% Nasal) 1 spray BID NASAL Last administered on 01/07/17 08:59; Admin Dose 1 SPRAY; Start 01/04/17 at 21:00 Latanoprost (Xalatan) 1 drop QHS BOTH EYES Last administered on 01/06/17 20:20 ; Admin Dose 1 DROP; Start 01/04/17 at 21:00 Memantine (Namenda) 10 mg BID PO Last administered on 01/07/17 09:00; Admin Dose 10 MG; Start 01/04/17 at 21:00 Montelukast Sodium (Singulair) 10 mg QHS PO Last administered on 01/06/17 20: 21; Admin Dose 10 MG; Start 01/04/17 at 21:00 Pantoprazole (Protonix Tab) 40 mg BID@,18 PO Last administered on 01/07/17 05:29; Admin Dose 40 MG; Start 01/04/17 at 18:00 Morphine Sulfate (morphine) 2 mg Q2H PRN IV PAIN Last administered on 22:07; Admin Dose 2 MG; Start 01/05/17 at 15:00 DELORIS PEREIRA Jan 07, 2017 12:25
[2017-01-07] MEDS: morphine 2 MG INJ IV PRN (14:37)
[2017-01-07] MEDS: DIPHENHYDRAMINE 50 MG INJ IV PRN (14:37)
[2017-01-07 19:48] VITALS: BP 122/58; RESP 16
[2017-01-07] MEDS: MONTELUKAST 10 MG TAB PO SCH (22:10)
[2017-01-07] MEDS: LATANOPROST 0.005% 2.5 ML OPH BOTH EYES SCH (22:10)
[2017-01-08] MEDS: DEXTROSE 5%-LR 1,000 ML IV SCH ×2 (02:21→12:43)
[2017-01-08 05:13] LABS: BASOPHIL # 0.1 10^3/ul (0.0-0.1); BASOPHILS % 0.6 % (0.0-2.0); EOSINOPHILS # 0.7 10^3/ul (0.0-0.5); EOSINOPHILS % 5.5 % (0.0-7.0); HEMATOCRIT 30.7 % (42.0-52.0); HEMOGLOBIN 10.6 g/dl (14.0-18.0); LYMPHOCYTES # 2.6 10^3/ul (0.8-2.9); LYMPHOCYTES % 20.2 % (15.0-51.0); MEAN CORPUSCULAR HEMOGLOBIN 32.9 pg (29.0-33.0); MEAN CORPUSCULAR HGB CONC 34.5 g/dl (32.0-37.0); MEAN CORPUSCULAR VOLUME 95.3 fl (82.0-101.0); MEAN PLATELET VOLUME 9.7 fl (7.4-10.4); MONOCYTE # 1.5 10^3/ul (0.3-0.9); MONOCYTES % 11.5 % (0.0-11.0); NEUTROPHIL # 7.7 10^3/ul (1.6-7.5); NEUTROPHILS % 60.9 % (39.0-77.0); PLATELET COUNT 183 10^3/UL (140-415); RED BLOOD COUNT 3.22 10^6/ul (4.70-6.10); RED CELL DISTRIBUTION WIDTH 13.2 % (11.5-14.5); WHITE BLOOD COUNT 12.6 10^3/ul (4.8-10.8)
[2017-01-08] MEDS: PANTOPRAZOLE (EC) 40 MG TAB PO SCH ×2 (05:18→17:41)
[2017-01-08] MEDS: OXYCODONE/ACETAMINOPHEN (5/325) TAB PO PRN ×4 (05:18→19:56)
[2017-01-08 05:52] LABS: CALCIUM 8.5 mg/dl (8.4-10.2); CREATININE 0.69 mg/dl (0.61-1.24); POTASSIUM 4.4 mmol/L (3.5-5.1)
[2017-01-08 08:24] VITALS: BP 118/58; RESP 18
[2017-01-08] MEDS: DONEPEZIL 5 MG TAB PO SCH (09:35)
[2017-01-08] MEDS: AMLODIPINE 5 MG TAB PO SCH (09:35)
[2017-01-08] MEDS: ASPIRIN (EC) 325 MG TAB PO SCH ×2 (09:35→21:10)
[2017-01-08] MEDS: MEMANTINE 10 MG TAB PO SCH ×2 (09:35→21:10)
[2017-01-08] MEDS: FLUTICASONE 0.05% 16 GM NAS SPRAY NASAL SCH ×2 (09:35→21:10)
[2017-01-08] MEDS: BENAZEPRIL 40 MG TAB PO SCH (09:36)
[2017-01-08] MEDS: DORZOLAMIDE/TIMOLOL 10 ML OPH BOTH EYES SCH ×2 (09:47→21:10)
[2017-01-08] MEDS: FLUOXETINE 10 MG CAP PO SCH (11:18)
[2017-01-08] MEDS: morphine 2 MG INJ IV PRN (16:33)
--- NOTE | 2017-01-08 17:39 | PN ---
Date/Time of Note Date/Time of Note DATE: 01/08/17 TIME: 17:36 Assessment/Plan VTE Prophylaxis VTE Prophylaxis Intervention: SCD's Lines/Catheters IV [facility]from [facility]ine [facility] Urinary Cath still in place: No Assessment/Plan Chief Complaint/Hosp Course Patient tolerates CPM well, pain is well controlled, remains hemodynamically stable. Assessment/Plan - Left knee osteoarthritis, status post left total knee replacement. Continue aspirin, continue PT, continue CPM. pending acute rehab eval. - Hypertension. Continue benazepril and Norvasc. Further recommendations based on clinical course. Plan of care discussed with Dr. Sharif. Problems: Exam/Review of Systems Vital Signs Vitals Vital Signs Date Time Temp Pulse Resp B/P Pulse Ox O2 Delivery O2 Flow Rate FiO2 01/08/17 08:24 98.7 78 18 118/58 96 01/05/17 11:00 Nasal Cannula 2.0 Intake and Output 01/07/17 01/07/17 01/08/17 15:00 23:00 07:00 Intake Total 1650 ml 600 ml Output Total 1200 ml 700 ml Balance 450 ml -100 ml Exam Constitutional: alert Respiratory: normal air movement Cardiovascular: nl pulses Gastrointestinal: non-tender, soft Musculoskeletal: other (Status post left total knee replacement) Results Result Diagram: 01/08/17 0440 01/08/17 0440 Results 24 hrs Laboratory Tests Test 01/08/17 04:40 White Blood Count 12.6 H Red Blood Count 3.22 L Hemoglobin 10.6 L Hematocrit 30.7 L Mean Corpuscular Volume 95.3 Mean Corpuscular Hemoglobin 32.9 Mean Corpuscular Hemoglobin Concent 34.5 Red Cell Distribution Width 13.2 Platelet Count 183 Mean Platelet Volume 9.7 Neutrophils % 60.9 Lymphocytes % 20.2 Monocytes % 11.5 H Eosinophils % 5.5 Basophils % 0.6 Nucleated Red Blood Cells % 0.0 Neutrophils # 7.7 H Lymphocytes # 2.6 Monocytes # 1.5 H Eosinophils # 0.7 H Basophils # 0.1 Nucleated Red Blood Cells # 0.0 Sodium Level 137 Potassium Level 4.4 Chloride Level 102 Carbon Dioxide Level 27 Anion Gap 12 Blood Urea Nitrogen 12 Creatinine 0.69 Glucose Level 138 Calcium Level 8.5 Medications Medications Current Medications Naloxone HCl (Narcan) 0.2 mg PRN PRN IV DECREASED REPIRATORY RATE; Start at 11:00 Oxycodone/ Acetaminophen (Percocet (5/ 325)) 1 tab Q4H PRN PO PAIN LEVEL 1-5; Start 01/04/17 at 11:00 Oxycodone/ Acetaminophen (Percocet (5/ 325)) 2 tab Q4H PRN PO PAIN LEVEL 6-10 Last administered on 01/08/17 13:34; Admin Dose 2 TAB; Start 01/04/17 at 11:00 Ondansetron HCl (Zofran Inj) 4 mg Q6H PRN IV NAUSEA AND/OR VOMITING; Start at 11:00 Diphenhydramine HCl (Benadryl) 25 mg Q6H PRN IV ITCHING Last administered on 14:37; Admin Dose 25 MG; Start 01/04/17 at 11:00 Miscellaneous Information 1. Discontinue MUSEUM TECHNICIAN... MUSEUM TECHNICIAN IV ; Start 01/04/17 at 11:00 Miscellaneous Information 1. Discontinue MUSEUM TECHNICIAN... MUSEUM TECHNICIAN IV ; Start 01/04/17 at 11:00 Dextrose/Lactated Ringer's (D5-Lr) 1,000 ml @ 80 mls/hr [id number] IV Last administered on 01/05/17 08:41; Admin Dose 80 MLS/HR; Start 01/04/17 at 11:04 Oxycodone HCl (Roxicodone) 10 mg Q3H PRN PO PAIN LEVEL 4-7; Start 01/04/17 at 11:30 Oxycodone HCl (Roxicodone) 5 mg Q3H PRN PO PAIN LEVEL 1-3; Start 01/04/17 at 11 :30 Aspirin (Ecotrin) 325 mg BID PO Last administered on 01/08/17 09:35; Admin Dose 325 MG; Start 01/05/17 at 09:00 Senna/Docusate Sodium (Senokot-S) 2 tab BID PRN PO CONSTIPATION; Start at 11:30 Magnesium Hydroxide (Milk Of Mag) 30 ml HS PRN PO CONSTIPATION; Start 01/04/17 at 11:30 Naloxone HCl (Narcan) 0.2 mg Q2M PRN IV DECREASED REPIRATORY RATE; Start at 11:30 Albuterol (Ventolin Hfa) 2 puff Q4H PRN INH SHORTNESS OF BREATH; Start at 15:30 Amlodipine Besylate (Norvasc) 5 mg DAILY PO Last administered on 01/08/17 09: 35; Admin Dose 5 MG; Start 01/05/17 at 09:00 Benazepril HCl (Lotensin) 40 mg DAILY PO Last administered on 01/08/17 09:36; Admin Dose 40 MG; Start 01/05/17 at 09:00 Donepezil HCl (Aricept) 5 mg DAILY PO Last administered on 01/08/17 09:35; Admin Dose 5 MG; Start 01/05/17 at 09:00 Dorzolamide/ Timolol (Cosopt) 1 drop BID BOTH EYES Last administered on 09:47; Admin Dose 1 DROP; Start 01/04/17 at 21:00 Fluoxetine HCl (Prozac) 10 mg DAILY PO Last administered on 01/08/17 11:18; Admin Dose 10 MG; Start 01/05/17 at 09:00 Fluticasone Propionate (Flonase 0.05% Nasal) 1 spray BID NASAL Last administered on 01/08/17 09:35; Admin Dose 1 SPRAY; Start 01/04/17 at 21:00 Latanoprost (Xalatan) 1 drop QHS BOTH EYES Last administered on 01/07/17 22:10 ; Admin Dose 1 DROP; Start 01/04/17 at 21:00 Memantine (Namenda) 10 mg BID PO Last administered on 01/08/17 09:35; Admin Dose 10 MG; Start 01/04/17 at 21:00 Montelukast Sodium (Singulair) 10 mg QHS PO Last administered on 01/07/17 22: 10; Admin Dose 10 MG; Start 01/04/17 at 21:00 Pantoprazole (Protonix Tab) 40 mg BID@06,18 PO Last administered on 01/08/17 05:18; Admin Dose 40 MG; Start 01/04/17 at 18:00 Morphine Sulfate (morphine) 2 mg Q2H PRN IV PAIN Last administered on 16:33; Admin Dose 2 MG; Start 01/05/17 at 15:00 DELORIS PEREIRA Jan 08, 2017 17:39
[2017-01-08 20:43] VITALS: BP 120/60; RESP 20
[2017-01-08] MEDS: LATANOPROST 0.005% 2.5 ML OPH BOTH EYES SCH (21:10)
[2017-01-08] MEDS: MONTELUKAST 10 MG TAB PO SCH (21:10)
[2017-01-09] MEDS: OXYCODONE/ACETAMINOPHEN (5/325) TAB PO PRN ×5 (02:11→18:25)
[2017-01-09] MEDS: DEXTROSE 5%-LR 1,000 ML IV SCH (03:09)
[2017-01-09 05:19] LABS: BASOPHIL # 0.1 10^3/ul (0.0-0.1); BASOPHILS % 0.6 % (0.0-2.0); EOSINOPHILS # 0.7 10^3/ul (0.0-0.5); EOSINOPHILS % 5.8 % (0.0-7.0); HEMATOCRIT 29.4 % (42.0-52.0); HEMOGLOBIN 10.1 g/dl (14.0-18.0); LYMPHOCYTES # 2.5 10^3/ul (0.8-2.9); LYMPHOCYTES % 21.8 % (15.0-51.0); MEAN CORPUSCULAR HEMOGLOBIN 33.1 pg (29.0-33.0); MEAN CORPUSCULAR HGB CONC 34.4 g/dl (32.0-37.0); MEAN CORPUSCULAR VOLUME 96.4 fl (82.0-101.0); MEAN PLATELET VOLUME 8.8 fl (7.4-10.4); MONOCYTE # 1.4 10^3/ul (0.3-0.9); MONOCYTES % 12.1 % (0.0-11.0); NEUTROPHIL # 6.5 10^3/ul (1.6-7.5); NEUTROPHILS % 57.6 % (39.0-77.0); PLATELET COUNT 212 10^3/UL (140-415); RED BLOOD COUNT 3.05 10^6/ul (4.70-6.10); RED CELL DISTRIBUTION WIDTH 13.2 % (11.5-14.5); WHITE BLOOD COUNT 11.3 10^3/ul (4.8-10.8)
[2017-01-09 05:41] LABS: CALCIUM 8.2 mg/dl (8.4-10.2); CREATININE 0.77 mg/dl (0.61-1.24); POTASSIUM 4.7 mmol/L (3.5-5.1)
[2017-01-09] MEDS: PANTOPRAZOLE (EC) 40 MG TAB PO SCH ×2 (06:10→18:24)
[2017-01-09 07:52] VITALS: BP 117/59; RESP 18
[2017-01-09] MEDS: FLUTICASONE 0.05% 16 GM NAS SPRAY NASAL SCH ×2 (09:45→20:09)
[2017-01-09] MEDS: ASPIRIN (EC) 325 MG TAB PO SCH ×2 (09:46→20:09)
[2017-01-09] MEDS: AMLODIPINE 5 MG TAB PO SCH (09:46)
[2017-01-09] MEDS: DONEPEZIL 5 MG TAB PO SCH (09:46)
[2017-01-09] MEDS: FLUOXETINE 10 MG CAP PO SCH (09:46)
[2017-01-09] MEDS: BENAZEPRIL 40 MG TAB PO SCH (09:46)
[2017-01-09] MEDS: MEMANTINE 10 MG TAB PO SCH ×2 (09:46→20:09)
[2017-01-09] MEDS: DORZOLAMIDE/TIMOLOL 10 ML OPH BOTH EYES SCH ×2 (11:03→20:09)
[2017-01-09] MEDS: DIPHENHYDRAMINE 50 MG INJ IV PRN (11:14)
--- NOTE | 2017-01-09 14:02 | PN ---
Date/Time of Note Date/Time of Note DATE: 01/09/17 TIME: 14:01 Assessment/Plan VTE Prophylaxis VTE Prophylaxis Intervention: SCD's Lines/Catheters IV [facility] Type (from [facility]): Saline Lock Urinary Cath still in place: No Assessment/Plan Chief Complaint/Hosp Course Patient remains hemodynamically stable, pain is well controlled, pending acute rehab placement. Assessment/Plan - Left knee osteoarthritis, status post left total knee replacement. Continue aspirin, continue PT, continue CPM. - Hypertension. Continue benazepril and Norvasc. Further recommendations based on clinical course. Plan of care discussed with Dr. Sharif. Problems: Exam/Review of Systems Vital Signs Vitals Vital Signs Date Time Temp Pulse Resp B/P Pulse Ox O2 Delivery O2 Flow Rate FiO2 01/09/17 07:52 97.8 77 18 117/59 96 01/05/17 11:00 Nasal Cannula 2.0 Intake and Output 01/08/17 01/08/17 01/09/17 15:00 23:00 07:00 Intake Total 1140 ml 420 ml Output Total 800 ml 700 ml Balance 340 ml -280 ml Exam Constitutional: alert Respiratory: normal air movement Cardiovascular: nl pulses Gastrointestinal: non-tender, soft Musculoskeletal: other (Status post left total knee replacement) Results Result Diagram: 01/09/17 0443 01/09/17 0443 Results 24 hrs Laboratory Tests Test 01/09/17 04:43 White Blood Count 11.3 H Red Blood Count 3.05 L Hemoglobin 10.1 L Hematocrit 29.4 L Mean Corpuscular Volume 96.4 Mean Corpuscular Hemoglobin 33.1 H Mean Corpuscular Hemoglobin Concent 34.4 Red Cell Distribution Width 13.2 Platelet Count 212 Mean Platelet Volume 8.8 Neutrophils % 57.6 Lymphocytes % 21.8 Monocytes % 12.1 H Eosinophils % 5.8 Basophils % 0.6 Nucleated Red Blood Cells % 0.0 Neutrophils # 6.5 Lymphocytes # 2.5 Monocytes # 1.4 H Eosinophils # 0.7 H Basophils # 0.1 Nucleated Red Blood Cells # 0.0 Sodium Level 136 Potassium Level 4.7 Chloride Level 100 Carbon Dioxide Level 26 Anion Gap 15 Blood Urea Nitrogen 15 Creatinine 0.77 Glucose Level 145 Calcium Level 8.2 L Medications Medications Current Medications Naloxone HCl (Narcan) 0.2 mg PRN PRN IV DECREASED REPIRATORY RATE; Start at 11:00 Oxycodone/ Acetaminophen (Percocet (5/ 325)) 1 tab Q4H PRN PO PAIN LEVEL 1-5; Start 01/04/17 at 11:00 Oxycodone/ Acetaminophen (Percocet (5/ 325)) 2 tab Q4H PRN PO PAIN LEVEL 6-10 Last administered on 01/09/17 09:52; Admin Dose 2 TAB; Start 01/04/17 at 11:00 Ondansetron HCl (Zofran Inj) 4 mg Q6H PRN IV NAUSEA AND/OR VOMITING; Start at 11:00 Diphenhydramine HCl (Benadryl) 25 mg Q6H PRN IV ITCHING Last administered on 11:14; Admin Dose 25 MG; Start 01/04/17 at 11:00 Miscellaneous Information 1. Discontinue PANAMA HAT SMEARER... PANAMA HAT SMEARER IV ; Start 01/04/17 at 11:00 Miscellaneous Information 1. Discontinue PANAMA HAT SMEARER... PANAMA HAT SMEARER IV ; Start 01/04/17 at 11:00 Dextrose/Lactated Ringer's (D5-Lr) 1,000 ml @ 80 mls/hr [id number] IV Last administered on 01/05/17 08:41; Admin Dose 80 MLS/HR; Start 01/04/17 at 11:04 Oxycodone HCl (Roxicodone) 10 mg Q3H PRN PO PAIN LEVEL 4-7; Start 01/04/17 at 11:30 Oxycodone HCl (Roxicodone) 5 mg Q3H PRN PO PAIN LEVEL 1-3; Start 01/04/17 at 11 :30 Aspirin (Ecotrin) 325 mg BID PO Last administered on 01/09/17 09:46; Admin Dose 325 MG; Start 01/05/17 at 09:00 Senna/Docusate Sodium (Senokot-S) 2 tab BID PRN PO CONSTIPATION; Start at 11:30 Magnesium Hydroxide (Milk Of Mag) 30 ml HS PRN PO CONSTIPATION; Start 01/04/17 at 11:30 Naloxone HCl (Narcan) 0.2 mg Q2M PRN IV DECREASED REPIRATORY RATE; Start at 11:30 Albuterol (Ventolin Hfa) 2 puff Q4H PRN INH SHORTNESS OF BREATH; Start at 15:30 Amlodipine Besylate (Norvasc) 5 mg DAILY PO Last administered on 01/09/17 09: 46; Admin Dose 5 MG; Start 01/05/17 at 09:00 Benazepril HCl (Lotensin) 40 mg DAILY PO Last administered on 01/09/17 09:46; Admin Dose 40 MG; Start 01/05/17 at 09:00 Donepezil HCl (Aricept) 5 mg DAILY PO Last administered on 01/09/17 09:46; Admin Dose 5 MG; Start 01/05/17 at 09:00 Dorzolamide/ Timolol (Cosopt) 1 drop BID BOTH EYES Last administered on 11:03; Admin Dose 1 DROP; Start 01/04/17 at 21:00 Fluoxetine HCl (Prozac) 10 mg DAILY PO Last administered on 01/09/17 09:46; Admin Dose 10 MG; Start 01/05/17 at 09:00 Fluticasone Propionate (Flonase 0.05% Nasal) 1 spray BID NASAL Last administered on 01/09/17 09:45; Admin Dose 1 SPRAY; Start 01/04/17 at 21:00 Latanoprost (Xalatan) 1 drop QHS BOTH EYES Last administered on 01/08/17 21:10 ; Admin Dose 1 DROP; Start 01/04/17 at 21:00 Memantine (Namenda) 10 mg BID PO Last administered on 01/09/17 09:46; Admin Dose 10 MG; Start 01/04/17 at 21:00 Montelukast Sodium (Singulair) 10 mg QHS PO Last administered on 01/08/17 21: 10; Admin Dose 10 MG; Start 01/04/17 at 21:00 Pantoprazole (Protonix Tab) 40 mg BID@,18 PO Last administered on 01/09/17 06:10; Admin Dose 40 MG; Start 01/04/17 at 18:00 Morphine Sulfate (morphine) 2 mg Q2H PRN IV PAIN Last administered on 16:33; Admin Dose 2 MG; Start 01/05/17 at 15:00 DELORIS PEREIRA Jan 09, 2017 14:02
[2017-01-09 20:00] VITALS: BP 120/58; RESP 22
[2017-01-09] MEDS: MONTELUKAST 10 MG TAB PO SCH (20:09)
[2017-01-09] MEDS: LATANOPROST 0.005% 2.5 ML OPH BOTH EYES SCH (20:15)
[2017-01-09] MEDS: oxyCODONE 5 MG TAB PO PRN (21:48)
[2017-01-09] MEDS: ZOLPIDEM 5 MG TAB PO PRN (23:47)
[2017-01-10] MEDS: OXYCODONE/ACETAMINOPHEN (5/325) TAB PO PRN ×2 (02:09→23:00)
[2017-01-10] MEDS: oxyCODONE 5 MG TAB PO PRN ×5 (05:03→20:13)
[2017-01-10] MEDS: PANTOPRAZOLE (EC) 40 MG TAB PO SCH ×2 (05:03→17:24)
[2017-01-10 05:30] LABS: BASOPHIL # 0.1 10^3/ul (0.0-0.1); BASOPHILS % 0.5 % (0.0-2.0); EOSINOPHILS # 0.6 10^3/ul (0.0-0.5); EOSINOPHILS % 4.9 % (0.0-7.0); HEMATOCRIT 30.7 % (42.0-52.0); HEMOGLOBIN 10.5 g/dl (14.0-18.0); LYMPHOCYTES # 1.8 10^3/ul (0.8-2.9); LYMPHOCYTES % 15.7 % (15.0-51.0); MEAN CORPUSCULAR HEMOGLOBIN 33.4 pg (29.0-33.0); MEAN CORPUSCULAR HGB CONC 34.2 g/dl (32.0-37.0); MEAN CORPUSCULAR VOLUME 97.8 fl (82.0-101.0); MEAN PLATELET VOLUME 8.8 fl (7.4-10.4); MONOCYTE # 1.3 10^3/ul (0.3-0.9); MONOCYTES % 11.6 % (0.0-11.0); NEUTROPHIL # 7.5 10^3/ul (1.6-7.5); PLATELET COUNT 233 10^3/UL (140-415); RED BLOOD COUNT 3.14 10^6/ul (4.70-6.10); RED CELL DISTRIBUTION WIDTH 13.3 % (11.5-14.5); WHITE BLOOD COUNT 11.6 10^3/ul (4.8-10.8)
[2017-01-10 06:00] LABS: CALCIUM 8.5 mg/dl (8.4-10.2); CREATININE 0.82 mg/dl (0.61-1.24); POTASSIUM 4.6 mmol/L (3.5-5.1)
[2017-01-10 08:20] VITALS: BP 117/57; RESP 18
[2017-01-10] MEDS: DORZOLAMIDE/TIMOLOL 10 ML OPH BOTH EYES SCH ×2 (09:09→21:15)
[2017-01-10] MEDS: FLUTICASONE 0.05% 16 GM NAS SPRAY NASAL SCH ×2 (09:09→21:15)
[2017-01-10] MEDS: ASPIRIN (EC) 325 MG TAB PO SCH ×2 (09:10→21:16)
[2017-01-10] MEDS: MEMANTINE 10 MG TAB PO SCH ×2 (09:10→21:16)
[2017-01-10] MEDS: BENAZEPRIL 40 MG TAB PO SCH (09:11)
[2017-01-10] MEDS: FLUOXETINE 10 MG CAP PO SCH (09:11)
[2017-01-10] MEDS: DONEPEZIL 5 MG TAB PO SCH (09:12)
[2017-01-10] MEDS: AMLODIPINE 5 MG TAB PO SCH (09:12)
[2017-01-10] MEDS: morphine 2 MG INJ IV PRN (12:03)
--- NOTE | 2017-01-10 12:31 | PN ---
Date/Time of Note Date/Time of Note DATE: 01/10/17 TIME: 12:30 Assessment/Plan VTE Prophylaxis VTE Prophylaxis Intervention: other Lines/Catheters IV C[facility]ter Type (from [facility]): Saline Lock Urinary Cath still in place: No Assessment/Plan Chief Complaint/Hosp Course - Left knee osteoarthritis, status post left total knee replacement. Continue aspirin, continue PT, continue CPM. - Hypertension. Continue benazepril and Norvasc. Problems: Subjective 24 Hr Interval Summary Free Text/Dictation Patient complain of knee pain Exam/Review of Systems Vital Signs Vitals Vital Signs Date Time Temp Pulse Resp B/P Pulse Ox O2 Delivery O2 Flow Rate FiO2 01/10/17 08:20 97.6 71 18 117/57 94 Intake and Output 01/09/17 01/09/17 01/10/17 14:59 22:59 06:59 Intake Total 970 ml 850 ml Output Total 850 ml 780 ml Balance 120 ml 70 ml Exam Constitutional: well developed Head: atraumatic, normocephalic Neck: supple Respiratory: clear to auscultation Cardiovascular: regular rate and rhythm Gastrointestinal: non-tender, soft Extremities: normal pulses Results Result Diagram: 01/10/17 0441 01/10/17 0441 Results 24 hrs Laboratory Tests Test 01/10/17 04:41 White Blood Count 11.6 H Red Blood Count 3.14 L Hemoglobin 10.5 L Hematocrit 30.7 L Mean Corpuscular Volume 97.8 Mean Corpuscular Hemoglobin 33.4 H Mean Corpuscular Hemoglobin Concent 34.2 Red Cell Distribution Width 13.3 Platelet Count 233 Mean Platelet Volume 8.8 Neutrophils % 65.0 Lymphocytes % 15.7 Monocytes % 11.6 H Eosinophils % 4.9 Basophils % 0.5 Nucleated Red Blood Cells % 0.0 Neutrophils # 7.5 Lymphocytes # 1.8 Monocytes # 1.3 H Eosinophils # 0.6 H Basophils # 0.1 Nucleated Red Blood Cells # 0.0 Sodium Level 137 Potassium Level 4.6 Chloride Level 101 Carbon Dioxide Level 27 Anion Gap 14 Blood Urea Nitrogen 21 H Creatinine 0.82 Glucose Level 148 Calcium Level 8.5 Medications Medications Current Medications Naloxone HCl (Narcan) 0.2 mg PRN PRN IV DECREASED REPIRATORY RATE; Start at 11:00 Oxycodone/ Acetaminophen (Percocet (5/ 325)) 1 tab Q4H PRN PO PAIN LEVEL 1-5; Start 01/04/17 at 11:00 Oxycodone/ Acetaminophen (Percocet (5/ 325)) 2 tab Q4H PRN PO PAIN LEVEL 6-10 Last administered on 01/10/17 02:09; Admin Dose 2 TAB; Start 01/04/17 at 11:00 Ondansetron HCl (Zofran Inj) 4 mg Q6H PRN IV NAUSEA AND/OR VOMITING; Start at 11:00 Diphenhydramine HCl (Benadryl) 25 mg Q6H PRN IV ITCHING Last administered on 11:14; Admin Dose 25 MG; Start 01/04/17 at 11:00 Miscellaneous Information 1. Discontinue HOGSHEAD SALVAGE... HOGSHEAD SALVAGE IV ; Start 01/04/17 at 11:00 Miscellaneous Information 1. Discontinue HOGSHEAD SALVAGE... HOGSHEAD SALVAGE IV ; Start 01/04/17 at 11:00 Oxycodone HCl (Roxicodone) 10 mg Q3H PRN PO PAIN LEVEL 4-7 Last administered on 01/10/17 10:27; Admin Dose 10 MG; Start 01/04/17 at 11:30 Oxycodone HCl (Roxicodone) 5 mg Q3H PRN PO PAIN LEVEL 1-3; Start 01/04/17 at 11 :30 Aspirin (Ecotrin) 325 mg BID PO Last administered on 01/10/17 09:10; Admin Dose 325 MG; Start 01/05/17 at 09:00 Senna/Docusate Sodium (Senokot-S) 2 tab BID PRN PO CONSTIPATION; Start at 11:30 Magnesium Hydroxide (Milk Of Mag) 30 ml HS PRN PO CONSTIPATION; Start 01/04/17 at 11:30 Naloxone HCl (Narcan) 0.2 mg Q2M PRN IV DECREASED REPIRATORY RATE; Start at 11:30 Albuterol (Ventolin Hfa) 2 puff Q4H PRN INH SHORTNESS OF BREATH; Start at 15:30 Amlodipine Besylate (Norvasc) 5 mg DAILY PO Last administered on 01/10/17 09: 12; Admin Dose 5 MG; Start 01/05/17 at 09:00 Benazepril HCl (Lotensin) 40 mg DAILY PO Last administered on 01/10/17 09:11; Admin Dose 40 MG; Start 01/05/17 at 09:00 Donepezil HCl (Aricept) 5 mg DAILY PO Last administered on 01/10/17 09:12; Admin Dose 5 MG; Start 01/05/17 at 09:00 Dorzolamide/ Timolol (Cosopt) 1 drop BID BOTH EYES Last administered on 09:09; Admin Dose 1 DROP; Start 01/04/17 at 21:00 Fluoxetine HCl (Prozac) 10 mg DAILY PO Last administered on 01/10/17 09:11; Admin Dose 10 MG; Start 01/05/17 at 09:00 Fluticasone Propionate (Flonase 0.05% Nasal) 1 spray BID NASAL Last administered on 01/10/17 09:09; Admin Dose 1 SPRAY; Start 01/04/17 at 21:00 Latanoprost (Xalatan) 1 drop QHS BOTH EYES Last administered on 01/09/17 20:15 ; Admin Dose 1 DROP; Start 01/04/17 at 21:00 Memantine (Namenda) 10 mg BID PO Last administered on 01/10/17 09:10; Admin Dose 10 MG; Start 01/04/17 at 21:00 Montelukast Sodium (Singulair) 10 mg QHS PO Last administered on 01/09/17 20: 09; Admin Dose 10 MG; Start 01/04/17 at 21:00 Pantoprazole (Protonix Tab) 40 mg BID@06,18 PO Last administered on 01/10/17 05:03; Admin Dose 40 MG; Start 01/04/17 at 18:00 Morphine Sulfate (morphine) 2 mg Q2H PRN IV PAIN Last administered on 12:03; Admin Dose 2 MG; Start 01/05/17 at 15:00 GAEL KAMINSKI Jan 10, 2017 12:30
[2017-01-10 15:10] VITALS: BP 122/58; RESP 18
[2017-01-10 17:25] VITALS: BP 129/59; PULSE 77; RESP 20
[2017-01-10 19:20] VITALS: BP 114/55; RESP 18
[2017-01-10] MEDS: MONTELUKAST 10 MG TAB PO SCH (21:16)
[2017-01-10] MEDS: LATANOPROST 0.005% 2.5 ML OPH BOTH EYES SCH (21:17)
[2017-01-11] MEDS: oxyCODONE 5 MG TAB PO PRN ×4 (01:42→20:13)
[2017-01-11] MEDS: PANTOPRAZOLE (EC) 40 MG TAB PO SCH ×2 (05:23→18:07)
[2017-01-11 05:41] LABS: BASOPHIL # 0.1 10^3/ul (0.0-0.1); BASOPHILS % 0.8 % (0.0-2.0); EOSINOPHILS # 0.6 10^3/ul (0.0-0.5); EOSINOPHILS % 5.8 % (0.0-7.0); HEMATOCRIT 29.8 % (42.0-52.0); HEMOGLOBIN 10.2 g/dl (14.0-18.0); LYMPHOCYTES # 2.5 10^3/ul (0.8-2.9); LYMPHOCYTES % 23.2 % (15.0-51.0); MEAN CORPUSCULAR HEMOGLOBIN 32.9 pg (29.0-33.0); MEAN CORPUSCULAR HGB CONC 34.2 g/dl (32.0-37.0); MEAN CORPUSCULAR VOLUME 96.1 fl (82.0-101.0); MEAN PLATELET VOLUME 8.6 fl (7.4-10.4); MONOCYTE # 1.4 10^3/ul (0.3-0.9); MONOCYTES % 13.2 % (0.0-11.0); NEUTROPHILS % 55.4 % (39.0-77.0); PLATELET COUNT 242 10^3/UL (140-415); RED CELL DISTRIBUTION WIDTH 13.2 % (11.5-14.5); WHITE BLOOD COUNT 10.8 10^3/ul (4.8-10.8)
[2017-01-11 06:56] LABS: CALCIUM 8.4 mg/dl (8.4-10.2); CREATININE 0.8 mg/dl (0.61-1.24); POTASSIUM 4.9 mmol/L (3.5-5.1)
--- NOTE | 2017-01-11 07:32 | OPR ---
DATE OF OPERATION: 01/04/2017 SURGEON: Ck Matthwe MD. PREOPERATIVE DIAGNOSIS: POSTOPERATIVE DIAGNOSIS: OPERATION PERFORMED: Left total knee replacement secondary to . ANESTHESIA: Spinal anesthetic with . ANESTHESIOLOGIST: . ESTIMATED BLOOD LOSS: 150 mL. IMPLANTS: Femur size 4, tibia size 4. with asymmetric 38 patella. INDICATIONS: The patient is a 71-year-old male who has had progressive in his left knee, who has failed nonoperatively treatment. He presents now for elective left total knee replacement. The risks and benefits were discussed, including but not limited to infection, bleeding, blood clots, hardware failure, , dislocation, nerve damage a consent was obtained. OPERATIVE PROCEDURE: The patient was identified in the operating area, he had spinal anesthetic. He had , he had preoperative antibiotics. He had general endotracheal anesthesia. He was then positioned in the and all bony prominences were adequately padded. A Norman catheter was placed and the was prepped and draped in the standard sterile manner. A time out was performed. A tourniquet was applied to . There was significant calicification of the artery. I then made an anterior incision, I obtained hemostasis and made a medial parapatellar arthrotomy, flexed the knee medial femur, I put a distal femoral cutting guide, I took off the distal 8 mm. I then used a secondary cutting guide. I marked rotation at 3 degrees of external rotation. I used a size 4 cutting guide. The anterior of the femur was quite prominent but medial-lateral of the fit of the 4 was very good. I could not go to a smaller implant. At this point, I made my anterior- posterior chamfer cuts and I then turned my attention to the tibia. I used anterior alignment guide to line up with the anterior tibia. This was an extramedullary alignment guide. I pinned it in place and made my tibial cut and then I checked the flexion extension gaps, this is a metric with a 11 insert. I then trialed a size 4 femur, size 4 tibia, with 11 insert, the knee was to full extension and full flexion, we varus valgus test. I then turned my attention to the patella. I used a sized the patella, I used cutting guide, I cut the patella to the appropriate thickness. I then trialed a symmetric 38 patella, the patella tracked well with . I marked the rotation tibia, I made the peg holes through the femoral trial, I then punched the tibia, I took out the trial components. I then irrigated thoroughly and the bony I then cemented a size 4 femur. Asymmetric , cement hardened. I then totally irrigated the knee. I impacted the until locked in place. I then had full range of motion with good stability and full extension, extension and full flexion. obtained. closed with #0 Vicryl. The skin was closed with . . Dictated By: Ck Matthew MD /endy/tosin /Document#: [id number]
--- NOTE | 2017-01-11 07:55 | PN ---
Date/Time of Note Date/Time of Note DATE: 01/11/17 TIME: 07:55 Assessment/Plan VTE Prophylaxis VTE Prophylaxis Intervention: other Lines/Catheters IV Catheter Type (from [facility]): Saline Lock Urinary Cath still in place: Yes Reason Cath still needed: skin wounds contaminated by urine Assessment/Plan Chief Complaint/Hosp Course - Left knee osteoarthritis, status post left total knee replacement. Continue aspirin, continue PT, continue CPM. - Hypertension. Continue benazepril and Norvasc. - anxiety. Give ativan prn Problems: Subjective 24 Hr Interval Summary Free Text/Dictation Patient continues to have significant amount of pain in knee but is also complain of anxiety and panic attacks Exam/Review of Systems Vital Signs Vitals Vital Signs Date Time Temp Pulse Resp B/P Pulse Ox O2 Delivery O2 Flow Rate FiO2 01/11/17 01:56 98.8 01/10/17 19:20 85 18 114/55 92 01/10/17 17:25 Room Air Intake and Output 01/10/17 01/10/17 01/11/17 15:00 23:00 07:00 Intake Total 1140 ml 600 ml Output Total 850 ml 1080 ml Balance 290 ml -480 ml Exam Constitutional: well developed Head: atraumatic, normocephalic Neck: supple Respiratory: clear to auscultation Cardiovascular: regular rate and rhythm Gastrointestinal: non-tender, soft Extremities: normal pulses Results Result Diagram: 01/11/17 0437 01/11/17 0437 Results 24 hrs Laboratory Tests Test 01/11/17 04:37 White Blood Count 10.8 Red Blood Count 3.10 L Hemoglobin 10.2 L Hematocrit 29.8 L Mean Corpuscular Volume 96.1 Mean Corpuscular Hemoglobin 32.9 Mean Corpuscular Hemoglobin Concent 34.2 Red Cell Distribution Width 13.2 Platelet Count 242 Mean Platelet Volume 8.6 Neutrophils % 55.4 Lymphocytes % 23.2 Monocytes % 13.2 H Eosinophils % 5.8 Basophils % 0.8 Nucleated Red Blood Cells % 0.0 Neutrophils # 6.0 Lymphocytes # 2.5 Monocytes # 1.4 H Eosinophils # 0.6 H Basophils # 0.1 Nucleated Red Blood Cells # 0.0 Sodium Level 135 Potassium Level 4.9 Chloride Level 99 Carbon Dioxide Level 25 Anion Gap 16 Blood Urea Nitrogen 21 H Creatinine 0.80 Glucose Level 115 Calcium Level 8.4 Medications Medications Current Medications Naloxone HCl (Narcan) 0.2 mg PRN PRN IV DECREASED REPIRATORY RATE; Start at 11:00 Oxycodone/ Acetaminophen (Percocet (5/ 325)) 1 tab Q4H PRN PO PAIN LEVEL 1-5; Start 01/04/17 at 11:00 Oxycodone/ Acetaminophen (Percocet (5/ 325)) 2 tab Q4H PRN PO PAIN LEVEL 6-10 Last administered on 01/10/17 23:00; Admin Dose 2 TAB; Start 01/04/17 at 11:00 Ondansetron HCl (Zofran Inj) 4 mg Q6H PRN IV NAUSEA AND/OR VOMITING; Start at 11:00 Diphenhydramine HCl (Benadryl) 25 mg Q6H PRN IV ITCHING Last administered on 11:14; Admin Dose 25 MG; Start 01/04/17 at 11:00 Miscellaneous Information 1. Discontinue MAGICIAN HELPER... MAGICIAN HELPER IV ; Start 01/04/17 at 11:00 Miscellaneous Information 1. Discontinue MAGICIAN HELPER... MAGICIAN HELPER IV ; Start 01/04/17 at 11:00 Oxycodone HCl (Roxicodone) 10 mg Q3H PRN PO PAIN LEVEL 4-7 Last administered on 01/11/17 05:24; Admin Dose 10 MG; Start 01/04/17 at 11:30 Oxycodone HCl (Roxicodone) 5 mg Q3H PRN PO PAIN LEVEL 1-3; Start 01/04/17 at 11 :30 Aspirin (Ecotrin) 325 mg BID PO Last administered on 01/10/17 21:16; Admin Dose 325 MG; Start 01/05/17 at 09:00 Senna/Docusate Sodium (Senokot-S) 2 tab BID PRN PO CONSTIPATION; Start at 11:30 Magnesium Hydroxide (Milk Of Mag) 30 ml HS PRN PO CONSTIPATION; Start 01/04/17 at 11:30 Naloxone HCl (Narcan) 0.2 mg Q2M PRN IV DECREASED REPIRATORY RATE; Start at 11:30 Albuterol (Ventolin Hfa) 2 puff Q4H PRN INH SHORTNESS OF BREATH; Start at 15:30 Amlodipine Besylate (Norvasc) 5 mg DAILY PO Last administered on 01/10/17 09: 12; Admin Dose 5 MG; Start 01/05/17 at 09:00 Benazepril HCl (Lotensin) 40 mg DAILY PO Last administered on 01/10/17 09:11; Admin Dose 40 MG; Start 01/05/17 at 09:00 Donepezil HCl (Aricept) 5 mg DAILY PO Last administered on 01/10/17 09:12; Admin Dose 5 MG; Start 01/05/17 at 09:00 Dorzolamide/ Timolol (Cosopt) 1 drop BID BOTH EYES Last administered on 21:15; Admin Dose 1 DROP; Start 01/04/17 at 21:00 Fluoxetine HCl (Prozac) 10 mg DAILY PO Last administered on 01/10/17 09:11; Admin Dose 10 MG; Start 01/05/17 at 09:00 Fluticasone Propionate (Flonase 0.05% Nasal) 1 spray BID NASAL Last administered on 01/10/17 21:15; Admin Dose 1 SPRAY; Start 01/04/17 at 21:00 Latanoprost (Xalatan) 1 drop QHS BOTH EYES Last administered on 01/10/17 21:17 ; Admin Dose 1 DROP; Start 01/04/17 at 21:00 Memantine (Namenda) 10 mg BID PO Last administered on 01/10/17 21:16; Admin Dose 10 MG; Start 01/04/17 at 21:00 Montelukast Sodium (Singulair) 10 mg QHS PO Last administered on 01/10/17 21: 16; Admin Dose 10 MG; Start 01/04/17 at 21:00 Pantoprazole (Protonix Tab) 40 mg BID@06,18 PO Last administered on 01/11/17 05:23; Admin Dose 40 MG; Start 01/04/17 at 18:00 Morphine Sulfate (morphine) 2 mg Q2H PRN IV PAIN Last administered on 12:03; Admin Dose 2 MG; Start 01/05/17 at 15:00 GAEL KAMINSKI Jan 11, 2017 07:55
[2017-01-11] MEDS ORDERED: LORAZEPAM 2 MG INJ IV PRN (08:00)
[2017-01-11 08:03] VITALS: BP 124/57; RESP 20
[2017-01-11] MEDS: FLUOXETINE 10 MG CAP PO SCH (08:17)
[2017-01-11] MEDS: DORZOLAMIDE/TIMOLOL 10 ML OPH BOTH EYES SCH ×2 (08:17→20:14)
[2017-01-11] MEDS: ASPIRIN (EC) 325 MG TAB PO SCH ×2 (08:17→20:12)
[2017-01-11] MEDS: MEMANTINE 10 MG TAB PO SCH ×2 (08:17→20:14)
[2017-01-11] MEDS: AMLODIPINE 5 MG TAB PO SCH (08:17)
[2017-01-11] MEDS: FLUTICASONE 0.05% 16 GM NAS SPRAY NASAL SCH ×2 (08:17→20:18)
[2017-01-11] MEDS: DONEPEZIL 5 MG TAB PO SCH (08:17)
[2017-01-11] MEDS: BENAZEPRIL 40 MG TAB PO SCH (08:18)
[2017-01-11 14:00] VITALS: BP 135/64; RESP 20
[2017-01-11] MEDS: morphine 2 MG INJ IV PRN (16:52)
[2017-01-11 19:10] VITALS: BP 117/56; RESP 18
[2017-01-11] MEDS: MONTELUKAST 10 MG TAB PO SCH (20:13)
[2017-01-11] MEDS: LATANOPROST 0.005% 2.5 ML OPH BOTH EYES SCH (20:15)
[2017-01-11] MEDS: DIPHENHYDRAMINE 50 MG INJ IV PRN (22:57)
[2017-01-12 02:00] VITALS: BP 149/70; RESP 18
[2017-01-12] MEDS: oxyCODONE 5 MG TAB PO PRN ×5 (06:11→18:15)
[2017-01-12] MEDS: PANTOPRAZOLE (EC) 40 MG TAB PO SCH ×2 (06:11→17:59)
[2017-01-12 07:57] VITALS: BP 120/58; RESP 16
[2017-01-12] MEDS: DORZOLAMIDE/TIMOLOL 10 ML OPH BOTH EYES SCH (09:29)
[2017-01-12] MEDS: MEMANTINE 10 MG TAB PO SCH (09:30)
[2017-01-12] MEDS: ASPIRIN (EC) 325 MG TAB PO SCH (09:30)
[2017-01-12] MEDS: DONEPEZIL 5 MG TAB PO SCH (09:30)
[2017-01-12] MEDS: FLUOXETINE 10 MG CAP PO SCH (09:30)
[2017-01-12] MEDS: FLUTICASONE 0.05% 16 GM NAS SPRAY NASAL SCH (09:30)
[2017-01-12] MEDS: BENAZEPRIL 40 MG TAB PO SCH (09:31)
[2017-01-12] MEDS: AMLODIPINE 5 MG TAB PO SCH (09:31)
--- NOTE | 2017-01-12 10:59 | PN ---
Date/Time of Note Date/Time of Note DATE: 01/12/17 TIME: 10:59 Assessment/Plan VTE Prophylaxis VTE Prophylaxis Intervention: other Lines/Catheters IV Catheter Type (from Nrsg): Saline Lock Urinary Cath still in place: Yes Reason Cath still needed: skin wounds contaminated by urine Assessment/Plan Chief Complaint/Hosp Course - Left knee osteoarthritis, status post left total knee replacement. Continue aspirin, continue PT, continue CPM. - Hypertension. Continue benazepril and Norvasc. - anxiety. Give ativan prn Problems: Subjective 24 Hr Interval Summary Free Text/Dictation Patient is ambulating with physical therapy Exam/Review of Systems Vital Signs Vitals Vital Signs Date Time Temp Pulse Resp B/P Pulse Ox O2 Delivery O2 Flow Rate FiO2 01/12/17 07:57 99.0 75 16 120/58 100 01/10/17 17:25 Room Air Intake and Output 01/11/17 01/11/17 01/12/17 15:00 23:00 07:00 Intake Total 1040 ml Output Total 1150 ml Balance -110 ml Exam Constitutional: well developed Head: atraumatic, normocephalic Neck: supple Respiratory: clear to auscultation Cardiovascular: regular rate and rhythm Gastrointestinal: non-tender, soft Extremities: normal pulses Results Result Diagram: 01/11/17 0437 01/11/17 0437 Medications Medications Current Medications Naloxone HCl (Narcan) 0.2 mg PRN PRN IV DECREASED REPIRATORY RATE; Start at 11:00 Oxycodone/ Acetaminophen (Percocet (5/ 325)) 1 tab Q4H PRN PO PAIN LEVEL 1-5; Start 01/04/17 at 11:00 Oxycodone/ Acetaminophen (Percocet (5/ 325)) 2 tab Q4H PRN PO PAIN LEVEL 6-10 Last administered on 01/10/17 23:00; Admin Dose 2 TAB; Start 01/04/17 at 11:00 Ondansetron HCl (Zofran Inj) 4 mg Q6H PRN IV NAUSEA AND/OR VOMITING; Start at 11:00 Diphenhydramine HCl (Benadryl) 25 mg Q6H PRN IV ITCHING Last administered on 22:57; Admin Dose 25 MG; Start 01/04/17 at 11:00 Miscellaneous Information 1. Discontinue MAILING MANAGER... MAILING MANAGER IV ; Start 01/04/17 at 11:00 Miscellaneous Information 1. Discontinue MAILING MANAGER... MAILING MANAGER IV ; Start 01/04/17 at 11:00 Oxycodone HCl (Roxicodone) 10 mg Q3H PRN PO PAIN LEVEL 4-7 Last administered on 01/12/17 09:29; Admin Dose 10 MG; Start 01/04/17 at 11:30 Oxycodone HCl (Roxicodone) 5 mg Q3H PRN PO PAIN LEVEL 1-3; Start 01/04/17 at 11 :30 Aspirin (Ecotrin) 325 mg BID PO Last administered on 01/12/17 09:30; Admin Dose 325 MG; Start 01/05/17 at 09:00 Senna/Docusate Sodium (Senokot-S) 2 tab BID PRN PO CONSTIPATION; Start at 11:30 Magnesium Hydroxide (Milk Of Mag) 30 ml HS PRN PO CONSTIPATION; Start 01/04/17 at 11:30 Naloxone HCl (Narcan) 0.2 mg Q2M PRN IV DECREASED REPIRATORY RATE; Start at 11:30 Albuterol (Ventolin Hfa) 2 puff Q4H PRN INH SHORTNESS OF BREATH; Start at 15:30 Amlodipine Besylate (Norvasc) 5 mg DAILY PO Last administered on 01/12/17 09: 31; Admin Dose 5 MG; Start 01/05/17 at 09:00 Benazepril HCl (Lotensin) 40 mg DAILY PO Last administered on 01/12/17 09:31; Admin Dose 40 MG; Start 01/05/17 at 09:00 Donepezil HCl (Aricept) 5 mg DAILY PO Last administered on 01/12/17 09:30; Admin Dose 5 MG; Start 01/05/17 at 09:00 Dorzolamide/ Timolol (Cosopt) 1 drop BID BOTH EYES Last administered on 09:29; Admin Dose 1 DROP; Start 01/04/17 at 21:00 Fluoxetine HCl (Prozac) 10 mg DAILY PO Last administered on 01/12/17 09:30; Admin Dose 10 MG; Start 7/22/17 at 09:00 Fluticasone Propionate (Flonase 0.05% Nasal) 1 spray BID NASAL Last administered on 01/12/17 09:30; Admin Dose 1 SPRAY; Start 01/04/17 at 21:00 Latanoprost (Xalatan) 1 drop QHS BOTH EYES Last administered on 01/11/17 20:15 ; Admin Dose 1 DROP; Start 01/04/17 at 21:00 Memantine (Namenda) 10 mg BID PO Last administered on 01/12/17 09:30; Admin Dose 10 MG; Start 01/04/17 at 21:00 Montelukast Sodium (Singulair) 10 mg QHS PO Last administered on 01/11/17 20: 13; Admin Dose 10 MG; Start 01/04/17 at 21:00 Pantoprazole (Protonix Tab) 40 mg BID@06,18 PO Last administered on 01/12/17 06:11; Admin Dose 40 MG; Start 01/04/17 at 18:00 Morphine Sulfate (morphine) 2 mg Q2H PRN IV PAIN Last administered on 16:52; Admin Dose 2 MG; Start 01/05/17 at 15:00 GAEL KAMINSKI Jan 12, 2017 10:59
[2017-01-12] MEDS: morphine 2 MG INJ IV PRN (19:43)
== END 2017-01-12 20:00 | DRG 470 ==
LOC: REC 01-04 06:59 → MS1 01-04 12:32
PROVIDERS: ADMIT Specialist; ATTEND Specialist
PROC: 0SRD0JZ Replacement of Left Knee Joint with Synthetic Substitute, Open Approach (ICD-10-PCS; principal; 2017-01-04 08:00)
DX: M17.12 Unilateral primary osteoarthritis, left knee (principal); G30.9 Alzheimer's disease, unspecified; K74.60 Unspecified cirrhosis of liver; F02.80 Dementia in other diseases classified elsewhere, unspecified severity, without behavioral disturbance, psychotic disturbance, mood disturbance, and anxiety; I10 Essential (primary) hypertension; I25.10 Atherosclerotic heart disease of native coronary artery without angina pectoris; J45.909 Unspecified asthma, uncomplicated; E11.9 Type 2 diabetes mellitus without complications
CPT/HCPCS: 73560; 80048; 82962; 85025; 85610; 86900; 86901; 87086; 88304; 88311; 97110; 97116; 97163; 97167; 97530; C1713; J0690; J1100; J1170; J1200; J1885; J2060; J2250; J2270; J2370; J2405; J2795; J3010; J7121